=== PATIENT | female | born 1985 | race Caucasian/White ===

== ENCOUNTER 2016-09-02 08:53 | Inpatient (IN) | payer OTHER ==
[~2016-09-02] VITALS: Ht 167.6 cm; Wt 86.2 kg
[~2016-09-02 08:53] MED LIST: Ibuprofen PO
[2016-09-02] MEDS ORDERED: Oxytocin 30 Units/500 mL LR Premix IV ONE (09:48)
[2016-09-02] MEDS ORDERED: Measles-Mumps-Rubella Vaccine 0.5 mL Inj SUBQ ONE (10:45)
[2016-09-02] MEDS: Lactated Ringer's 1,000 ML IV SCH ×2 (10:45→18:45)
[2016-09-02] MEDS ORDERED: TdaP Vaccine 0.5 mL Inj IM ONE (10:45)
[2016-09-02] MEDS ORDERED: Influenza (Adult) Vaccine 0.5 mL Syringe IM ONE (10:45)
[2016-09-02] MEDS ORDERED: Benzocaine (Dermoplast) 20% 60 Gm Spray TOPICAL PRN (10:45)
[2016-09-02] MEDS ORDERED: Oxytocin 30 Units/500 mL LR 30 UNITS in IV Premix 1 EACH IV PRN (10:45)
[2016-09-02] MEDS ORDERED: Methylergonovine 0.2 mg/mL Inj IM PRN (10:45)
[2016-09-02] MEDS ORDERED: Hemorrhage Kit, Post Partum XX ONE (10:45)
[2016-09-02] MEDS ORDERED: HYDROcodone-APAP 5-325 mg Tablet PO PRN (10:45)
[2016-09-02] MEDS ORDERED: Carboprost 250 mCg/mL Inj IM PRN (10:45)
[2016-09-02] MEDS ORDERED: Oxytocin 10 Unit/mL Inj IM PRN (10:45)
[2016-09-02] MEDS ORDERED: Witch Hazel-Glycerin Pads TOPICAL PRN (10:45)
[2016-09-02] MEDS ORDERED: LANOlin HPA 7 Gm Ointment TOPICAL PRN (10:45)
[2016-09-02 13:27] LABS: Mean Corpuscular Hemoglobin 28.8 pg (27.0-35.0)
[2016-09-03 06:26] LABS: Mean Corpuscular Hemoglobin 28.7 pg (27.0-35.0); Mean Corpuscular Volume 90.6 fL (81-100)
[2016-09-03] MEDS: Lactated Ringer's 1,000 ML IV SCH (09:18)
--- NOTE | 2016-09-03 12:37 | PCM.DIOB ---
Obstetrical Disch Instruction Dates of Hospitalization Date of Hospital Admission Sep 02, 2016 at 09:05 Providers Admitting Physician: Steven Bolton MD Primary Care Physician: Steven Bolton MD Attending Physician: Steven Bolton MD Discharge Diagnosis Problems: (1) Onset Date: 12/26/2014 Status: Acute ICD Code: Z33.1 Diet Discharge Diet: No restrictions Activity Discharge Activity-General: Pelvic Rest for 6 weeks Dressing and Incisional Care Hygiene: May shower, Perineal care, Sitz bath, Dermoplast spray, Witch Belem pads, Ice Follow Up Plan Follow-up appointment: Weeks (Follow up in 6 weeks for checkup. Call Office to Schedule.) Call your provider for: Fever or Chills, Shortness of breath, Heavy vaginal bleeding, Red painful breasts Steven Bolton MD Sep 03, 2016 12:37
[2016-09-03] MEDS ORDERED: IBUP-1827 PO (12:38)
[2016-09-03] MEDS ORDERED: DOCU-41 PO (12:38)
--- NOTE | 2016-09-03 20:46 | HP ---
[address] [address] HISTORY AND PHYSICAL PATIENT: BRIANDA CAMPBELL : 1985 MR#: [id number] ADMIT: 09/02/2016 JOB ID: [id number] [facility] NOTE: DATE: 09/02/2016 at 1000 hours. HISTORY: Brianda Campbell is a 31-year-old, G3, P1, AB1, woman, followed prenatally at [facility]. See record for details. course has been relatively uncomplicated, now reaching 40 and 3/7th weeks of gestation when spontaneous rupture of membranes and labor onset occurred. She, thus, came to the hospital for evaluation and admission. Note, 45 pounds of weight gain in , abnormal 1 hour glucose challenge test, although 3-hour glucose tolerance test was technically negative (only one abnormal value), group B strep test negative, Rh negative, Rubella Immune. In summary, then, Brianda Campbell was admitted to [facility] on September 02, 2016 in the morning in the setting of labor and spontaneous rupture of membranes at term. PHYSICAL EXAMINATION: On admission, height 66 inches. Last weight and blood pressure in the office: 192 pounds, 130/82. Neck: No thyromegaly. Lungs: Clear to auscultation and percussion. Heart: Regular in rate and rhythm. Abdomen: Fundal height 40 cm. Positive heartbeat. Vertex presentation. Pelvic examination: Initial cervical exam noted at 7 cm, forebag palpable although grossly ruptured with clear fluid. IMPRESSION: 1. A 40 and 3/7 weeks gestation. 2. Active labor. 3. Spontaneous rupture of membranes, clear fluid. 4. Rh-negative status, having received RhoGAM injection earlier in . 5. Rubella immune status. 6. Negative GBS status. 7. Abnormal 1 hour glucose challenge test, although 3 hour glucose tolerance test technically normal (only one abnormal value). 8. Increased weight gain in (45 pounds). 9. Reproductive history: a. First --miscarriage at 10 weeks of gestation. b. Second --38-1/2 week vaginal delivery, 7 pound 14 ounce baby, no epidural, 4 hour labor. c. Third --current. 10. Family history of gestational diabetes (mother), hypertension (mother), pancreatic and lung cancer (grandmother), and breast cancer (maternal grandmother). PLAN: Brianda Campbell has been admitted to [facility] on September 02, 2016 in active labor and with ruptured membranes at term, anticipating vaginal delivery. She has not wanted epidural anesthesia, and she has not needed group B strep prophylaxis. MTDD
--- NOTE | 2016-09-03 21:34 | PROG NOTE ---
[address] [address] PROGRESS NOTE PATIENT: BRIANDA CORNEJO : 1985 MR#: [id number] ADMIT: 09/02/2016 JOB ID: [id number] DATE: 09/02/2016 at 1230 hours. [facility] NOTE: The patient was admitted to [facility] in the morning of September 02, 2016 with active labor and spontaneous rupture of membranes at full term, to have her second baby. She was observed and labor progress occurred relatively rapidly, up to complete cervical dilatation. heart tracing was acceptable. The patient did not prefer to intravenous antibiotics or epidural. Once completely dilated, the second stage of labor was very rapid and the head descended and then crowned and then delivered. The patient was encouraged to push, yet shoulder did not immediately deliver. Thus, the anterior shoulder was rotated from behind the symphysis pubis to diagonal orientation with some further rotation of fetus and then delivery of the shoulders, body and extremities in short order. There was, thus, no true shoulder dystocia as maneuvers and rotations were accomplished. Baby grimaced and started to cry while with the mother, although then did not further take deep breaths. Umbilical cord was clamped and cut. The infant was then taken to the warmer for brief drying, stimulation and resuscitative efforts with appropriate response. The baby was soon active and crying and vigorous and brought back to mother. Cord blood was obtained for routine studies. Placenta with membranes then was spontaneously expelled and noted to be intact. Uterus contracted well with massage, plus intravenous Pitocin infusion. Note that blood loss was in the 150+ cc range. Betadine solution was used to cleanse the vulvovaginal region. The only laceration was that of a midline second-degree perineal laceration, not large, easily repaired with 3-0 chromic suture in deep and then more superficial running/subcuticular layers. Hemostasis was noted to be complete. There was no hematoma formation. Instrument, needle and sponge counts were all found to be correct. Procedures were complete. It certainly is anticipated that mother and baby will do very well during the timeframe.
--- NOTE | 2016-09-04 02:17 | DIS ---
[address] [address] DISCHARGE SUMMARY PATIENT: BRIANDA CORNEJO : 1985 MR#: [id number] ADMIT: 09/02/2016 JOB ID: [id number] DIS: 09/03/2016 DISCHARGE DIAGNOSES: 1. Term , delivered. 2. Mild anemia. PROCEDURES PERFORMED DURING HOSPITALIZATION: Vaginal delivery. HOSPITAL COURSE: This patient was admitted to [facility] on September 02, 2016, on which day she was noted to have rupture of membranes and to be in labor at term. She ultimately delivered vaginally. She also underwent perineal laceration repair. During the timeframe, patient did well, remaining afebrile, with reasonable blood pressure (some mild blood pressure elevations although without any specific concern for preeclampsia, nor was there any need for antihypertensive medication,), bleeding and discomfort were reasonable, there was no leg pain or shortness of breath, the patient was able to void and ambulate, and she handled baby well. Note that hemoglobin was 10 in 10+ range. Patient requested discharge to home on the first day, i.e., on September 03, 2016, and her request was granted. DISCHARGE PROGRAM: Patient will call p.r.n., yet otherwise she will follow up at six weeks for checkup with Dr. Bolton at [facility]. She will observe pelvic rest for six weeks. DISCHARGE MEDICATIONS: Include ibuprofen, Colace, and vitamin, and patient has a supply of each of these at home as it turns out.
== END 2016-09-03 14:38 | disposition home or self-care (01) | DRG 775 ==
LOC: FBCO 08:53 → FBC 09:05
PROVIDERS: ADMIT Obstetrics & Gynecology; ATTEND Obstetrics & Gynecology
PROC: 10E0XZZ Delivery of Products of Conception, External Approach (ICD-10-PCS; principal; 2016-09-02)
PROC: 0KQM0ZZ Repair Perineum Muscle, Open Approach (ICD-10-PCS; 2016-09-02)
DX: O70.1 Second degree perineal laceration during delivery (principal); Z37.0 Single live birth; Z3A.40 40 weeks gestation of pregnancy